=== PATIENT | male | born 1965 | race African-American/Black ===

== ENCOUNTER 2023-10-16 17:19 | Emergency (ER) | payer BC ==
[2023-10-16] MEDS: hydrALAZINE 20 MG/ML SDV IVPUSH ONE ×2 (20:08→20:56)
[2023-10-16] MEDS: Sodium Chloride 0.9% 10 ML Syringe FLUSH PRN (20:10)
[2023-10-16 20:11] LABS: BASOPHILS PERCENT AUTO 0.4 % (0.0-1.0); EOSINOPHILS ABSOLUTE AUTO 0.4 K/mm3 (0.0-0.4); EOSINOPHILS PERCENT AUTO 5.3 % (0.0-6.0); HEMATOCRIT 49.5 % (42.0-52.0); HEMOGLOBIN 16.3 gm/dl (14.0-18.0); IMMATURE GRAN ABSOLUTE AUTO 0.01 K/mm3 (0.00-0.05); IMMATURE GRAN PERCENT AUTO 0.1 % (0.0-0.4); LYMPHOCYTES ABSOLUTE AUTO 2.8 K/mm3 (1.0-4.8); LYMPHOCYTES PERCENT AUTO 37.6 % (24.0-44.0); MEAN CORPUSCULAR HEMOGLOBIN 27.3 pg (28.0-32.0); MEAN CORPUSCULAR HGB CONC 32.9 g/dl (32.0-36.0); MEAN CORPUSCULAR VOLUME 83.1 fl (83.0-99.0); MEAN PLATELET VOLUME 12.4 fl (9.4-12.4); MONOCYTES ABSOLUTE AUTO 0.5 K/mm3 (0.0-0.8); MONOCYTES PERCENT AUTO 7.1 % (0.0-8.0); NEUTROPHILS ABSOLUTE AUTO 3.7 K/mm3 (1.8-7.7); NEUTROPHILS PERCENT AUTO 49.5 % (41.0-71.0); PLATELET COUNT,PLT 82 K/mm3 (150-400); RED BLOOD CELL COUNT 5.96 M/mm3 (4.52-5.90); WHITE BLOOD CELL COUNT,WBC 7.37 K/mm3 (3.9-11.3)
[2023-10-16] MEDS: Aspirin 81 MG Tab.Chew PO ONE (20:13)
[2023-10-16 20:29] LABS: INR 0.99; PROTHROMBIN TIME 10.5 SECONDS (9.7-12.0)
[2023-10-16 20:31] LABS: PTT,PARTIAL THROMBOPLSTIN TIME 21.9 SECONDS (21.7-31.4)
[2023-10-16 20:34] LABS: A/G RATIO 1.1 (1-2); ANION GAP 9.3 (5-15); BILIRUBIN TOTAL 0.5 mg/dL (0.2-1.0); BUN/CREATININE RATIO 15.5 (14-18); CALCIUM 9.2 mg/dL (8.5-10.1); CREATININE 1.1 mg/dL (0.7-1.3); EST CRCL DRUG DOSING (CG) 77.42 mL/min; MAGNESIUM 2.1 mg/dL (1.8-2.4); PROTEIN TOTAL,TP 7.8 g/dl (6.4-8.2)
[2023-10-16 20:35] LABS: POTASSIUM,K 4.3 mEq/L (3.5-5.1)
[2023-10-16] MEDS: NIFEdipine 30 MG Tab.ER PO ONE (20:55)
[2023-10-16] MEDS: Hydrochlorothiazide 25 MG Tab PO ONE (20:56)
[2023-10-16 21:09] LABS: APPEARANCE,URINE CLEAR (Clear); BILIRUBIN,URINE NEGATIVE (Negative); COLOR,URINE LIGHT YELLOW (Yellow); GLUCOSE,URINE NEGATIVE (Negative); KETONES,URINE NEGATIVE (Negative); LEUKOCYTE ESTERASE,URINE NEGATIVE (Negative); NITRITE,URINE NEGATIVE (Negative); OCCULT BLOOD,URINE NEGATIVE (Negative); PH,URINE 7.5 (5.0-8.0); PROTEIN,URINE NEGATIVE (Negative); UROBILINOGEN,URINE 0.2 (0.2-1.0)
[2023-10-16] MEDS ORDERED: Naloxone 0.4 MG/ML SDV IVPUSH PRN (21:42)
[2023-10-16] MEDS: Morphine 2 MG/ML SYRINGE IVPUSH ONE (22:43)
== END 2023-10-17 01:36 | disposition home or self-care (01) ==
LOC: JD.ED 17:19
DX: R51.9 Headache, unspecified (principal); I10 Essential (primary) hypertension; Z91.018 Allergy to other foods; Z79.899 Other long term (current) drug therapy
CPT/HCPCS: 36415; 70450; 71045; 80053; 81003; 83735; 84484; 85025; 85610; 85730; 93005; 96374; 96375; 96376; 99284; A9270; J0360; J2270; J3490; 93010